=== PATIENT | female | born 1935 | race Caucasian/White ===

== ENCOUNTER → 2016-10-20 | Outpatient (CLI) | payer MEDICARE, BC ==
[~2016-10-20] MED LIST: ATACAND HCT 321 EACH PO; B COMPLEX1 CA1 PO; CALCIUM + D 6001 TA1 PO; CENTRUM SILVER PO; CRESTOR10 MG PO; FISH OIL 1,0001 CAP; FISH OIL 1,001000 MG PO; PANTOPRAZOLE SO40 MG PO; VITAMIN D400 UNI2 PO
--- NOTE | ~2016-10-20 | MY11 ---
[facility] A Service of [facility] RADIOLOGY TEXT RESULTS PATIENT: TOMI DELEON [facility] : 36 UNIT #: [id number] AGE: [address]: Neville Santizo MD SEX: F ORDER DR: [id number] [facility] [address] [place], [place] [address] [id number] O MR#: [id number] Acc #: [id number] NAME: TOMI DELEON : 1935 SEX: F STUDY DATE/TIME: 10/20/2016 8:53 UN[facility] ROOM: STUDY DESCRIPTION: MY Mammogram Screening [facility] [place] Attending Physician: Neville Santizo M.D. Ordering Physician: Neville Santizo M.D. Primary Care Physician: Neville Santizo M.D. MEDICAL IMAGING REPORT This report is preliminary unless electronic signature is present EXAM Digital screening mammogram 10/20/2016 HISTORY 81-year-old woman no risk elevation. Annual screen. COMPARISON Mammograms date to 04/26/2006 with most recent screening comparison 09/17/2015. FINDINGS Digital imaging of each breast was completed utilizing screening protocol. Multiple mole markers are placed. Review includes FDA-approved CAD device. Breast parenchyma is fatty replaced bilaterally. Single intramammary node right breast is stable. There is no interval occurring mass. There are no suspicious microcalcifications and no architectural deformity. IMPRESSION Negative mammogram. Annual screening is optional at this age. Patients over the age of 40 are entered into a reminder system with target due date for the next mammogram. A result letter will also be sent to the patient. BIRADS: 1 Negative Dictated by... [place] M.D. THIS IS AN ELECTRONICALLY VERIFIED REPORT [place] M.D. at 10/20/2016 11:30 AM [facility] A Service [facility] RADIOLOGY TEXT RESULTS PATIENT: TOMI DELEON [facility] : 36 UNIT #: [id number] AGE: [address]: Neville Santizo MD SEX: F ORDER DR: STACY/kirk TD: 10/20/2016 11:10 JOB #: [id number] MEDICAL IMAGING REPORT Page 1 of 1 COPY
== END | disposition home or self-care (01) ==
LOC: CWCC 08:17
DX: Z12.31 Encounter for screening mammogram for malignant neoplasm of breast (principal)
CPT/HCPCS: G0202

== ENCOUNTER 2016-12-07 08:57 | Emergency (ER) | payer MEDICARE, BC | END 2016-12-07 10:12 | disposition home or self-care (01) | LOC: CED 08:57 → CFTX 08:57 | DX: S91.011A Laceration without foreign body, right ankle, initial encounter (principal); I10 Essential (primary) hypertension; J44.9 Chronic obstructive pulmonary disease, unspecified; E78.5 Hyperlipidemia, unspecified; X58.XXXA Exposure to other specified factors, initial encounter; Y92.009 Unspecified place in unspecified non-institutional (private) residence as the place of occurrence of the external cause; Z23 Encounter for immunization | CPT/HCPCS: 12001; 90471; 90715; 99283 ==